=== PATIENT | male | born 2005 | race Caucasian/White ===

== ENCOUNTER 2024-04-12 17:18 | Observation (INO) ==
[2024-04-13] MEDS: NS 0.9% 1000 ml BAG 1,000 ML IV SCH ×2 (00:12→02:41)
[2024-04-13] MEDS: ceFAZolin 1 GM ADVAN 1 GM in NS 0.9% 50 ML 50 ML IVPB SCH (00:41)
[2024-04-13 10:09] VITALS: BP 136/72
[2024-04-13] MEDS: oxyCODONE/Acetamin 5/325 mg TAB PO PRN (11:50)
== END 2024-04-13 14:15 | disposition home or self-care (01) ==
LOC: ED 17:18 → EDHOLD 17:18 → SSU 04-13 01:30
PROVIDERS: ADMIT Orthopaedic Surgery; ATTEND Orthopaedic Surgery